=== PATIENT | male | born 1970 | race Hispanic/Latino ===

== ENCOUNTER 2016-06-12 17:23 | Emergency (ER) | payer SELFPAY ==
[~2016-06-12] VITALS: Ht 157.5 cm; Wt 71.2 kg
[2016-06-12] MEDS ORDERED: SKELAXIN800 MG PO (20:21)
[2016-06-12] MEDS ORDERED: NAPROXEN500 MG PO (20:21)
[2016-06-12 21:09] VITALS: BP 133/87
== END 2016-06-12 21:10 | disposition home or self-care (01) ==
LOC: EME 17:23
DX: S39.012A Strain of muscle, fascia and tendon of lower back, initial encounter (principal); M25.552 Pain in left hip; X50.9XXA Other and unspecified overexertion or strenuous movements or postures, initial encounter; Y99.0 Civilian activity done for income or pay
CPT/HCPCS: 99281; 99284